=== PATIENT | male | born 1955 | race African-American/Black ===

== ENCOUNTER 2023-09-16 19:08 | Emergency (ER) | payer OTHER ==
[~2023-09-16] VITALS: Ht 177.8 cm; Wt 68.0 kg
[2023-09-16 19:15] VITALS: TEMP 97.9; O2SAT 100
[2023-09-16] MEDS: HYDROCODONE/ACETAMINOPHEN 5/325MG TABLET PO ONE (19:30)
[2023-09-16 23:45] VITALS: BP 136/87; PULSE 77; RESP 18
[2023-09-16] MEDS: HYDROCODONE/ACETAMINOPHEN 5/325MG TABLET PO NR (23:45)
[2023-09-17] MEDS ORDERED: METH-653 MT (03:46)
[2023-09-17] MEDS ORDERED: IBUP-2029 MT (03:46)
== END 2023-09-17 12:26 | disposition home or self-care (01) ==
LOC: ER 19:19
DX: M54.50 Low back pain, unspecified (principal); M79.671 Pain in right foot; Z85.9 Personal history of malignant neoplasm, unspecified
CPT/HCPCS: 72128; 72131; 73630; 99284

== ENCOUNTER 2024-09-23 01:25 | Emergency (ER) | payer MEDICARE, MEDICAID ==
[~2024-09-23] VITALS: Ht 170.2 cm; Wt 55.0 kg
[~2024-09-23 01:25] MED LIST: IBUP-2029 MT; METH-653 MT
[2024-09-23 01:33] VITALS: TEMP 36.8; O2SAT 100
[2024-09-23 02:32] LABS: BASOPHILS % 1.4 % (0.0-2.0); EOSINOPHILS % 0.5 % (0.0-5.0); HEMATOCRIT. 31.8 % (42.0-52.0); HEMOGLOBIN. 10.3 g/dL (14.0-18.0); LYMPHOCYTES % 7.9 % (20.0-50.0); MEAN CORPUSCULAR HEMOGLOBIN 26.6 pg (28.0-32.0); MEAN CORPUSCULAR HGB CONC 32.3 g/dL (31.0-37.0); MEAN CORPUSCULAR VOLUME 82.2 fL (80.0-94.0); MEAN PLATELET VOLUME 7.6 fl (7.4-10.4); MONOCYTES % 8.5 % (2.0-8.0); NEUTROPHILS % 81.7 % (40.0-76.0); PLATELET 305 x1000/uL (130-400); RED BLOOD CELL COUNT 3.87 mill/uL (4.7-6.1); RED CELL DISTRIBUTION WIDTH 17.9 % (11.6-14.6); WHITE BLOOD COUNT 4.9 x1000/uL (4.5-11.0)
[2024-09-23 03:05] LABS: CHLORIDE 106 mEq/L (98-107); POTASSIUM 4.4 mEq/L (3.5-5.1); SODIUM 140 mEq/L (136-145)
[2024-09-23 03:06] LABS: CALCIUM 8.6 mg/dL (8.7-10.4); CARBON DIOXIDE 27 mEq/L (21-32)
[2024-09-23 03:11] LABS: CREATININE 0.7 mg/dL (0.6-1.3); GLUCOSE 87 mg/dL (70-105); UREA NITROGEN BLOOD 18 mg/dL (9-23)
[2024-09-23 03:15] LABS: CLARITY URINE CLOUDY (CLEAR); COLOR URINE RED (YELLOW); GLUCOSE URINE NEGATIVE (NEGATIVE); KETONES URINE NEGATIVE (NEGATIVE); LEUKOCYTE ESTERASE URINE 1+ (NEGATIVE); NITRITE URINE NEGATIVE (NEGATIVE); OCCULT BLOOD URINE 3+ (NEGATIVE); PROTEIN URINE 1+ (NEGATIVE); SPECIFIC GRAVITY URINE 1.015 (1.005-1.030)
[2024-09-23] MEDS: OXYCODONE HCL/ACETAMINOPHEN 5/325MG TABLET PO ONE (03:24)
[2024-09-23] MEDS ORDERED: LEVO-65 MT (04:32)
[2024-09-23] MEDS: LEVOFLOXACIN 500MG TABLET PO NR (04:34)
[2024-09-23 05:30] LABS: RBC URINE TNTC /hpf (0-2)
[2024-09-23 05:32] LABS: WBC URINE 0-2 /hpf (0-2)
[2024-09-23 05:33] LABS: BACTERIA URINE TRACE
[2024-09-23 08:00] VITALS: BP 101/59; PULSE 65; RESP 15; O2SAT 100
== END 2024-09-23 08:40 | disposition home or self-care (01) ==
LOC: ER 01:42
DX: R31.9 Hematuria, unspecified (principal); N40.0 Benign prostatic hyperplasia without lower urinary tract symptoms; J44.9 Chronic obstructive pulmonary disease, unspecified; C78.00 Secondary malignant neoplasm of unspecified lung; Z87.891 Personal history of nicotine dependence; Z79.899 Other long term (current) drug therapy
CPT/HCPCS: 36415; 80048; 81003; 85025; 99285